=== PATIENT | female | born 1950 | race Caucasian/White ===

== ENCOUNTER 2019-08-14 13:35 | Outpatient (CLI) | payer MEDICARE, BC, SELFPAY ==
--- NOTE | 2019-08-14 13:55 | XRR_ITS ---
PROCEDURE INFORMATION: Exam: XR Left Ribs Exam date and time: 08/14/2019 2:12 PM Age: 69 years old Clinical indication: Other: Left rib pain; Additional info: Left sided rib pain TECHNIQUE: Imaging protocol: XR Left ribs. Views: 2 views. COMPARISON: CR Chest 2 views* [id number] 01/07/2017 11:45 AM FINDINGS: Bones/joints: Negative for acute bony abnormality Soft tissues: Normal. XR/XR ribs LT 2V* [id number] IMPRESSION: No acute findings.
== END 2019-08-14 13:36 | disposition home or self-care (01) ==
LOC: RAD 13:48
PROVIDERS: Family Provider Family Medicine; PCP Family Medicine; Visit Provider Family Medicine
DX: R07.81 Pleurodynia (principal)
CPT/HCPCS: 71100

== ENCOUNTER 2020-07-16 13:38 | Outpatient (CLI) | payer MEDICARE, OTHER, SELFPAY ==
--- NOTE | 2020-07-16 13:50 | XRR_ITS ---
PROCEDURE INFORMATION: Exam: XR Thoracic Spine, 3 Views Exam date and time: 07/16/2020 1:50 PM Age: 70 years old Clinical indication: Pain in thoracic spine; Other: Not specified; Patient HX: Mid back pain for 2-3 months. Worse in the last 2 days. electric pain up and down spine TECHNIQUE: Imaging protocol: XR of the thoracic spine, 3 views. COMPARISON: No relevant prior studies available. FINDINGS: Bones/joints: Osteopenia, degenerative change, and scoliosis. No acute bony injury or malalignment. Soft tissues: Unremarkable. XR/XR thoracic spine 2V [id number] IMPRESSION: Osteopenia, degenerative change, and scoliosis.
--- NOTE | 2020-07-16 13:50 | XRR_ITS ---
PROCEDURE INFORMATION: Exam: XR Lumbosacral Spine, 2 or 3 Views Exam date and time: 07/16/2020 1:50 PM Age: 70 years old Clinical indication: Low back pain; Patient HX: Mid back pain for 2-3 months. Worse in the last 2 days. electric pain up and down spine TECHNIQUE: Imaging protocol: XR of the lumbosacral spine, 2 or 3 views. COMPARISON: CT abdomen pelvis w con* [id number] 11/26/2017 11:14 AM FINDINGS: Bones/joints: Osteopenia and degenerative change. No acute bony injury or malalignment. Soft tissues: Multiple surgical clips and sutures. Gastrointestinal tract: Prominent stool. XR/XR lumbar spine 2-3V* [id number] IMPRESSION: Osteopenia and degenerative change.
== END 2020-07-16 13:39 | disposition home or self-care (01) ==
LOC: RAD 13:43
PROVIDERS: PCP Family Medicine; Visit Provider Family Medicine
DX: M54.89 Other dorsalgia (principal); M85.88 Other specified disorders of bone density and structure, other site
CPT/HCPCS: 72070; 72100

== ENCOUNTER → 2021-01-29 12:26 | Outpatient (BNVA) | payer MEDICARE, OTHER, SELFPAY | PROVIDERS: PCP Family Medicine; Visit Provider Specialist | DX: M79.7 Fibromyalgia (principal); G31.84 Mild cognitive impairment of uncertain or unknown etiology; G62.9 Polyneuropathy, unspecified; M21.371 Foot drop, right foot; F41.9 Anxiety disorder, unspecified | CPT/HCPCS: 96116; 99214; 99215 ==

== ENCOUNTER 2021-04-29 13:40 | Outpatient (RCR) | payer MEDICARE, OTHER, SELFPAY | END 2021-05-11 23:59 | disposition home or self-care (01) | LOC: SPT 13:40 | PROVIDERS: PCP Family Medicine; Referring Provider Family Medicine; Visit Provider Family Medicine | DX: R26.81 Unsteadiness on feet (principal); M19.90 Unspecified osteoarthritis, unspecified site; R53.1 Weakness | CPT/HCPCS: 97110; 97161 ==

== ENCOUNTER 2021-05-06 09:40 | Outpatient (CLI) | payer MEDICARE, OTHER, SELFPAY ==
--- NOTE | 2021-05-06 09:48 | MM_ITS ---
WS: [id number] Exam: [place] [id number] Date/Time of Exam: 05/06/2021 9:49 AM Reason For Exam: SCREENING VIEWS: MLO and CC views both breasts. Comparison made with prior exam of 05/02/2015, 08/19/2017. Findings: Questionable new 4 mm nodule seen in the anterior left breast on the MLO view only. No other changes in either breast.Scattered fibroglandular densities in both breasts. MM/[place] [id number] Impression: BI-RADS: 0-Incomplete: Need additional imaging evaluation FOLLOW-UP: Additional imaging required. Magnification compression spot images o f the left breast in the MLO and CC projections would be recommended in additio n to a 90 degree lateral view of the left breast. Regional ultrasound of the le ft breast may also be necessary for further workup.Need Additional Imaging This mammogram was also analyzed by the Computer Aided Detection System [employer].
== END 2021-05-06 09:41 | disposition home or self-care (01) ==
PROVIDERS: PCP Family Medicine; Visit Provider Family Medicine
DX: Z12.31 Encounter for screening mammogram for malignant neoplasm of breast (principal)
CPT/HCPCS: 77067

== ENCOUNTER → 2021-05-08 13:55 | Outpatient (BNVA) | payer MEDICARE, OTHER, SELFPAY | PROVIDERS: PCP Family Medicine; Referring Provider Family Medicine; Visit Provider Specialist | DX: G31.84 Mild cognitive impairment of uncertain or unknown etiology (principal); R68.89 Other general symptoms and signs | CPT/HCPCS: 95816 ==

== ENCOUNTER → 2021-05-19 14:30 | Outpatient (BNVA) | payer MEDICARE, OTHER, SELFPAY | PROVIDERS: PCP Family Medicine; Visit Provider Specialist | DX: M79.7 Fibromyalgia (principal); G30.9 Alzheimer's disease, unspecified; F02.80 Dementia in other diseases classified elsewhere, unspecified severity, without behavioral disturbance, psychotic disturbance, mood disturbance, and anxiety; F41.8 Other specified anxiety disorders; F45.9 Somatoform disorder, unspecified | CPT/HCPCS: 99214 ==

== ENCOUNTER 2021-07-09 14:04 | Outpatient (CLI) | payer MEDICARE, OTHER, SELFPAY ==
--- NOTE | 2021-07-09 15:00 | US_ITS ---
WS: [id number] LEFT DIGITAL MAMMOGRAPHY WITH CAD CLINICAL INFORMATION: ABNORMAL MAMMO COMPARISON: May 06, 2021 TECHNIQUE: 2 views of the left breast were obtained. FINDINGS: The left breast is composed of heterogeneous fibroglandular density tissue, which can limit the detec tion of small underlying mass lesions. Previously described 4 mm nodule anterior left breast is less distinct on today's examination. Ultrasound is pending. ULTRASOUND BREAST LEFT TECHNIQUE: Ultrasound left breast focused area of concern. CLINICAL INFORMATION: ABNORMAL MAMMO COMPARISON: None. FINDINGS: Ultrasound left breast at the 8 o'clock position. Tiny simple appearing cyst measuring approximately 2.4 x 2.6 x 4.3 mm. This has a benign appearance. No other suspicious findings. Recommend return to a nnual screening mammography. US/US breast LT limited* [id number] IMPRESSION: BI-RADS: 2-Benign FOLLOW UP: 1 Year Follow-up Recommend return to annual screening mammography.
== END 2021-07-09 14:05 | disposition home or self-care (01) ==
LOC: RADSHAW 14:11
PROVIDERS: PCP Family Medicine; Visit Provider Family Medicine
DX: R92.8 Other abnormal and inconclusive findings on diagnostic imaging of breast (principal)
CPT/HCPCS: 76642; 77065

== ENCOUNTER 2021-08-18 14:02 | Outpatient (CLI) | payer MEDICARE, SELFPAY ==
--- NOTE | 2021-08-18 14:17 | CT_ITS ---
WS: [id number] CT THORACIC SPINE TECHNIQUE: Noncontrast CT of the thoracic spine with coronal and sagittal reformatted images. CLINICAL INFORMATION: BACK PAIN, ACUTE AND CHRONIC COMPARISON: None. DLP: All CT scans at [facility] use at least one of these dose optimization techniques: automated e xposure control; mA and/or kV adjustment per patient size (includes targeted exams where dose is matc hed to clinical indication); or iterative reconstruction. FINDINGS: Mild thoracic curve convex RIGHT. Mild thoracic kyphosis. Mild spondylitic changes thoracic spine. No acute appearing compression fractures. Disc space heights and vertebral body heights relatively well -preserved. Mild disc space narrowing with vacuum disc phenomenon at T9-T10 and T10-T11. No significa nt central canal stenosis. Mild to moderate facet arthropathy lower thoracic spine. Tiny shallow LEFT pericentral protrusion T11-T12. Spinal canal and foramen are patent. Mild disc bulg ing partially evaluated in the upper lumbar spine at L1-L2. Partially evaluated bilateral renal cysts. Adrenal glands are normal. Splenic granulomas. Partially v isualized hepatic cyst. CT/CT thoracic spin wo con* [id number] IMPRESSION: 1. Mild thoracic curve. Mild thoracic kyphosis. 2. No acute appearing compression fractures. 3. No high-grade central canal stenosis. 4. Mild spondylitic changes with mild disc space narrowing T9-T10 and T10-T11 with vacuum disc phenomenon. 5. Disc space heights and vertebral body heights are otherwise relatively well -preserved. 6. Tiny LEFT pericentral protrusion T11-T12 without significant spinal canal o r foraminal stenosis. 7. Moderate facet arthropathy lower thoracic spine.
--- NOTE | 2021-08-18 14:18 | CT_ITS ---
WS: [id number] CT CERVICAL SPINE TECHNIQUE: Noncontrast CT of the cervical spine with coronal and sagittal reformatted images. CLINICAL INFORMATION: BACK PAIN, ACUTE AND CHRONIC COMPARISON: MRI 2018 DLP: ? All CT scans at [facility] use at least one of these dose optimization techniques: automated e xposure control; mA and/or kV adjustment per patient size (includes targeted exams where dose is matc hed to clinical indication); or iterative reconstruction. FINDINGS: Straightening of the normal cervical lordosis. Mild spondylitic changes. Normal C1-C2 articulation. S light anterolisthesis C3 on C4 and C4 on C5. Disc space narrowing worse at C5-C6 and C6-C7. No high-g rade central canal stenosis. Lung apices are well aerated. Normal paravertebral soft tissues. C2-C3: Tiny shallow central protrusion. Mild facet arthropathy. Spinal canal and foramen are patent. C3-C4: Disc osteophytic ridging. Mild facet arthropathy. Mild RIGHT and no significant LEFT foraminal narrowing. C4-C5: Slight anterolisthesis C4 on C5. Disc osteophyte complex with endplate ridging. Slight contact of the cervical cord. Spinal canal is patent. Moderate facet arthropathy. Foramen are patent. C5-C6: RIGHT eccentric disc osteophyte complex. Moderate to severe RIGHT foraminal narrowing. LEFT fo ramen is patent. Spinal canal is patent. C6-C7: Disc osteophyte complex with endplate ridging. Mild central canal stenosis. Moderate to severe RIGHT and mild LEFT bony foraminal narrowing. C7-T1: No significant disc bulging. Spinal canal is patent. Mild RIGHT and no significant LEFT forami nal narrowing. Mastoid air cells are well aerated. Visualized posterior nasopharynx: Normal. Prevertebral soft tissues: Normal. CT/CT cervical spin wo con* [id number] IMPRESSION: 1. Straightening of the normal cervical lordosis with moderate spondylitic matty nges. Slight anterolisthesis C4 on C5. 2. Disc space narrowing worse at C5-C6 and C6-C7 appears progressed compared t o 2018. 3. Moderate to severe RIGHT C5-C6 and RIGHT C6-C7 bony foraminal narrowing. Th is appears unchanged since 2018. 4. Disc osteophyte complex with mild central canal stenosis C6-C7. This appear s slightly progressed compared to 2018. 5. Mild RIGHT C7-T1 foraminal narrowing unchanged.
== END 2021-08-18 14:03 | disposition home or self-care (01) ==
LOC: RAD 14:08
PROVIDERS: PCP Family Medicine; Visit Provider Family Medicine
DX: M25.78 Osteophyte, vertebrae (principal); M48.02 Spinal stenosis, cervical region; M40.294 Other kyphosis, thoracic region; M51.24 Other intervertebral disc displacement, thoracic region; M47.894 Other spondylosis, thoracic region
CPT/HCPCS: 72125; 72128

== ENCOUNTER → 2021-12-30 15:00 | Outpatient (BNVA) | payer MEDICARE, SELFPAY | PROVIDERS: PCP Family Medicine; Visit Provider Specialist | DX: M79.7 Fibromyalgia (principal); G31.84 Mild cognitive impairment of uncertain or unknown etiology; R68.89 Other general symptoms and signs; F41.9 Anxiety disorder, unspecified | CPT/HCPCS: 99214 ==

== ENCOUNTER → 2022-01-07 14:42 | Outpatient (BNVA) | payer MEDICARE, SELFPAY | PROVIDERS: PCP Family Medicine; Visit Provider Family Medicine | DX: N39.0 Urinary tract infection, site not specified (principal); A60.00 Herpesviral infection of urogenital system, unspecified; L28.0 Lichen simplex chronicus | CPT/HCPCS: 81000; 87077; 87086; 87184 ==

== ENCOUNTER → 2022-07-28 15:16 | Outpatient (BNVA) | payer MEDICARE, SELFPAY | PROVIDERS: PCP Family Medicine; Visit Provider Clinical Nurse Specialist Adult Health | DX: R19.7 Diarrhea, unspecified (principal); E03.9 Hypothyroidism, unspecified; F32.9 Major depressive disorder, single episode, unspecified | CPT/HCPCS: 80053; 81000; 83630; 84443; 85025; 85651; 86140; 87493; 87506 ==

== ENCOUNTER → 2022-11-11 12:11 | Outpatient (BNVA) | payer MEDICARE, OTHER, SELFPAY | PROVIDERS: PCP Family Medicine; Visit Provider Family Medicine | DX: E03.9 Hypothyroidism, unspecified (principal); F41.9 Anxiety disorder, unspecified; G30.9 Alzheimer's disease, unspecified; F02.80 Dementia in other diseases classified elsewhere, unspecified severity, without behavioral disturbance, psychotic disturbance, mood disturbance, and anxiety | CPT/HCPCS: 80053; 80061; 84443; 85025 ==

== ENCOUNTER 2023-06-13 13:01 | Emergency (ER) | payer MEDICARE, OTHER, SELFPAY ==
[2023-06-13 13:11] VITALS: BP 113/74; PULSE 96; RESP 16; TEMP 36.6; O2SAT 97; BMI 21.5
--- NOTE | 2023-06-13 13:19 | XRR_ITS ---
PROCEDURE INFORMATION: Exam: XR Left Wrist Exam date and time: 06/13/2023 1:27 PM Age: 73 years old Clinical indication: Pain; Wrist; Left; Additional info: Pain, injury 2 wks ago TECHNIQUE: Imaging protocol: Radiologic exam of the left wrist. Views: 3 or more views. COMPARISON: No relevant prior studies available. FINDINGS: Bones/joints: Bones are diffusely osteopenic. Alignment is normal. There is marked joint space narrowing and subchondral sclerosis with small marginal osteophytes at the triscaphe joint. There is mild osteoarthritis at the 1st carpometacarpal joint. No acute fracture. Soft tissues: Visible soft tissues are unremarkable. XR/XR wrist LT min 3V* [id number] IMPRESSION: 1. No acute fracture. 2. Severe triscaphe osteoarthritis. 3. Mild 1st carpometacarpal osteoarthritis. 4. Osteopenia.
--- NOTE | 2023-06-13 13:31 | ED_ITS ---
HPI - Extremity Problem General: Chief complaint: Extremity Injury, Upper Stated complaint: hurt left wrist Time Seen by Provider: 06/13/23 13:06 Source: patient Mode of arrival: ambulatory Limitations: no limitations History of Present Illness: Patient presents emergency department today for evaluation treatment of left posterior wrist pain. Patient noted onset a couple weeks ago without any known trauma or injury. Patient went to the urgent care initially and they were unable to find anything wrong with the wrist however, she is continued to have pain, she did contact them and they indicated she would need to come out to the emergency department if she needed an x-ray. Patient states that certain range of motion of the wrist causes sharp, shooting pains down into her hand. She has developed a small bump on the posterior mid/lateral wrist region which is tender and sore and the originating spot of her shooting pains. Patient is right-handed. She denies previous injury to the left wrist. Patient admits she has been looking into it and has been told it is a ganglion cyst but, patient states she is concerned of cancer. Patient had basal cell cancer on her nose removed in the past. Review of Systems General: Reports: 10 or more systems reviewed and unremarkable except in HPI and below PFSH ED PFSH: Medical History Diarrhea Hypothyroid Neuropathy Depression Surgical abdomen Surgical History History of hysterectomy Family History Other Cancer Dementia Social History Smoking and tobacco/nicotine status: never used tobacco/nicotine Alcohol intake: never Physical Exam Const: COMMON NORMALS: no acute distress, patient oriented x3 and alert HENMT: COMMON NORMALS: normocephalic, atraumatic and hearing grossly normal bilaterally HEAD & SCALP: normocephalic and atraumatic Eye: COMMON NORMALS: Equal, round and reactive pupils present, EOMs intact bilaterally and conjunctivae normal CONJUNCTIVA: Yes conjunctivae normal PUPIL: Yes Equal, round and reactive pupils present Neck/C-Spine: COMMON NORMALS: full ROM and no JVD Lymph: LYMPHATIC: no lymphadenopathy noted Resp: COMMON NORMALS: normal respiratory effort, No retractions and No use of accessory muscles Cardio: COMMON NORMALS: no JVD and regular rate RATE: regular rate Extremity: NARRATIVE EXTREMITY EXAM: Patient has flexion extension capabilities still preserved at the left wrist joint but, during her examination-especially at supination, patient had a sudden jolt of pain causing her to jump. Patient still has preserved mobility of the fingers of the left hand. Neuro: COMMON NORMALS: patient oriented x3 SENSORIUM/ORIENTATION: Yes alert OTHER: Neurovascular intact to the distal left upper extremity Psych: COMMON NORMALS: mental status grossly normal, Normal thought process present, cooperative and normal affect THOUGHT PROCESS: Normal thought process present Skin: COMMON NORMALS: no rashes or lesions noted and turgor normal NARRATIVE SKIN EXAM: Patient has no erythema, open wounds, or bruising noted to the left wrist region. Patient does have a small soft, mobile bump approximately 1 cm in diameter located to the posterior mid/lateral wrist region which is tender to touch. GENERAL SKIN EXAM: no rashes or lesions noted and turgor normal Course Vital Signs: Vital signs: Vital Signs Temperature 97.8 F 06/13/23 13:11 Pulse Rate 96 06/13/23 13:11 Respiratory Rate 16 06/13/23 13:11 Blood Pressure 113/74 06/13/23 13:11 Pulse Oximetry 97 06/13/23 13:11 Oxygen Delivery Me thod Room Air 06/13/23 13:11 MDM - Extremity (Nontraumatic) Medical Decision Making Initial examination is suspicious for a ganglion cyst however, patient is concerned for cancer. X-ray shows no signs of any bone deterioration though she does have signs of chronic osteoarthritic changes at multiple joints within the hand. Discussed with patient no current concerns for osteolytic changes suspicious for cancer. Patient is referred to orthopedics for further discussion of treatment for a ganglion cyst. Explained to her that aspiration and draining may lead to recurrence of the cyst and, would recommend letting the hand specialist do the aspiration if they think it is necessary. Or, they can have a decision made about a more definitive care with potential surgery. However, we do recommend immobilization of the joint as continued movement and mobility can cause friction and inflammation of the cyst leading to continued growth in size. Informational handout regarding ganglion cyst provided to the patient for her reference at home. Patient verbalized understanding and agreement to treatment plan. Differential Diagnosis Unlikely herpes zoster, gout, cellulitis, superficial thrombophlebitis or deep venous thrombosis of upper extremity Lab Data Radiology Impressions Wrist X-Ray 06/13/23 13:19 IMPRESSION: 1. No acute fracture. 2. Severe triscaphe osteoarthritis. 3. Mild 1st carpometacarpal osteoarthritis. 4. Osteopenia. All radiology interpretation(s) finalized by discharge Discharge Plan Discharge Patient Disposition: Home Clinical Impression: Ganglion cyst of dorsum of left wrist Condition: Stable Prescriptions: No Action gabapentin 300 mg capsule 300 mg PO DAILY diclofenac sodium [Voltaren Arthritis Pain] 1 % gel 4 g topical QID Qty: 100 0RF Rx Instructions: apply to single knee, ankle, foot; for foot includes sole/toes/top of foot cyclobenzaprine 10 mg tablet 10 mg PO BID PRN (Reason: muscle spasm) Qty: 60 5RF citalopram [Celexa] 20 mg tablet 20 mg PO DAILY Qty: 30 11RF levothyroxine [Synthroid] 75 mcg tablet See Rx Instructions .ROUTE .COMPLEX Qty: 90 3RF Dose Instruction: TAKE 1 TABLET ONCE DAILY Rx Instructions: TAKE 1 TABLET ONCE DAILY hydrocodone-acetaminophen 5-325 mg tablet 1 tab PO BID PRN (Reason: pain) 30 Days Qty: 60 0RF trazodone 150 mg tablet 150 mg PO DAILY Qty: 90 3RF Discharge Orders: Discharge ED (Routine); Ordered 06/13/23 Ordered By: Sheryl Crowell Referrals: Cam Cartwright MD [Primary Care Provider] - Discharge Diet: Usual diet Discharge Activity: Limit activity as instructed Patient Instructions: Ganglion Cyst (ED) Activity Restrictions/Additional Instructions: X-ray today revealed no acute concerns. You do have some significant arthritis in various joints within your hand. We are going to put you into a wrist brace to help decrease mobility of the wrist as continued movement can cause irritation and further inflammation of the cyst causing it to become larger. I have also requested a follow-up appointment with our hands orthopedic group for further evaluation to discuss best treatment course for more definitive management of removing this cyst. I provided you informational handout regarding ganglion cyst for you to look over at home. Coding Level of Care Code ED [employer] Super[employer] for Caren Collier
--- NOTE | 2023-06-14 08:15 | DCPLANNER ---
Message was sent to ortho on 06/14/23 at 0817. Clinic to contact patient.
== END 2023-06-13 14:33 | disposition home or self-care (01) ==
PROVIDERS: Emergency Provider Physician Assistant; PCP Family Medicine
DX: M67.432 Ganglion, left wrist (principal); M18.9 Osteoarthritis of first carpometacarpal joint, unspecified
CPT/HCPCS: 73110; 99283

== ENCOUNTER 2023-07-07 10:14 | Outpatient (CLI) | payer MEDICARE, OTHER, SELFPAY ==
--- NOTE | 2023-07-07 10:20 | CT_ITS ---
WS: [id number] CT NECK TECHNIQUE: Contrast-enhanced CT of the neck with coronal and sagittal reformatted images. CLINICAL INFORMATION: OTALGIA/CERVICALGIA COMPARISON: None. DLP: 158.[address] scans at [facility] use at least one of these dose optimization techniques: automated e xposure control; mA and/or kV adjustment per patient size (includes targeted exams where dose is matc hed to clinical indication); or iterative reconstruction. FINDINGS: No suspicious abnormalities deep to the palpable marker RIGHT neck. Parotid glands are normal. Normal submandibular glands. Mastoid air cells are well aerated. Polyploid mucosal thickening involving the RIGHT anterior ethmoid air cells. Normal posterior nasopharynx. Normal parapharyngeal fat. No evidence of supraglottic or glottic mass. Normal [place] tonsils. No cervical lymphadenopathy. Re tropharyngeal course to the common carotid and internal carotid arteries bilaterally. Lung apices are well aerated. Straightening normal cervical lordosis. Mild cervical curve. IMPRESSION: 1. No suspicious abnormalities deep to the palpable marker. Prominent external jugular vein near thi s area may correspond to the palpable abnormality. 2. Normal salivary glands. 3. No evidence of supraglottic or glottic mass. 4. Retropharyngeal course of the common carotid and internal carotid arteries bilaterally. 5. Polypoid opacification RIGHT frontal ethmoid air cells. This extends into the RIGHT maxillary ost ium.
[2023-07-07 11:14] LABS: Blood Urea Nitrogen 17 mg/dL (8-23)
[2023-07-07] MEDS: iohexol 350 mg/mL 500 mL Btl (per mL) IV (11:15)
== END 2023-07-07 10:15 | disposition home or self-care (01) ==
LOC: RAD 10:14
PROVIDERS: PCP Family Medicine; Visit Provider Specialist
DX: H92.09 Otalgia, unspecified ear (principal); M54.2 Cervicalgia
CPT/HCPCS: 70491; 82565; 84520; Q9967

== ENCOUNTER → 2023-07-13 13:20 | Outpatient (BNVA) | payer MEDICARE, OTHER, SELFPAY | PROVIDERS: PCP Family Medicine; Referring Provider Physician Assistant; Visit Provider Physician Assistant | DX: M67.432 Ganglion, left wrist (principal) | CPT/HCPCS: 99203 ==

== ENCOUNTER → 2024-02-09 13:29 | Outpatient (BNVA) | payer MEDICARE, OTHER, SELFPAY | PROVIDERS: PCP Family Medicine; Visit Provider Family Medicine | DX: G62.9 Polyneuropathy, unspecified (principal); R53.83 Other fatigue; F33.1 Major depressive disorder, recurrent, moderate; E03.9 Hypothyroidism, unspecified | CPT/HCPCS: 80053; 82306; 82607; 83880; 84443; 86140 ==

== ENCOUNTER → 2024-04-14 14:58 | Outpatient (BNVA) | payer MEDICARE, OTHER, SELFPAY | PROVIDERS: PCP Family Medicine; Referring Provider Family Medicine; Visit Provider Specialist | DX: G62.9 Polyneuropathy, unspecified (principal); R26.9 Unspecified abnormalities of gait and mobility; M79.7 Fibromyalgia; G31.84 Mild cognitive impairment of uncertain or unknown etiology; R68.89 Other general symptoms and signs; F41.9 Anxiety disorder, unspecified; N18.9 Chronic kidney disease, unspecified | CPT/HCPCS: 99214; 99215 ==

== ENCOUNTER 2024-05-12 14:36 | Outpatient (CLI) | payer MEDICARE, OTHER, SELFPAY ==
--- NOTE | 2024-05-12 15:15 | MR_ITS ---
WS: [id number] MRI HEAD WITH CONTRAST TECHNIQUE: Sagittal T1, T2 axial, T2 axial FLAIR, axial susceptibility weighted imaging, axial diffus ion weighted images, and coronal T2 images were obtained. Pre and post-T1 axial and post T1 coronal i mages. ADC and FSPGR images. CLINICAL INFORMATION: G62.9 - Polyneuropathy, unspecified COMPARISON: MRI 2018 FINDINGS: Some images degraded by motion. No evidence of restricted diffusion to suggest acute ischemia. Ventricular system and basal cisterns are patent. Mild patchy supratentorial white matter changes similar 2018 most likely due to small ves keshav changes in a patient this age. Mild parenchymal volume loss. No abnormal enhancing lesions. A few lesions are in a pericallosal distribution similar to 2018. Normal posterior fossa. Normal vascular flow voids at the skull base. No extra-axial fluid collection s. No evidence of mass or mass effect. Mild mucosal thickening the paranasal sinuses with opacificati on of the RIGHT frontoethmoidal recess and RIGHT ethmoid air cells. Mastoid air cells are well aerate d. No hemosiderin on the susceptibly weighted images. No abnormal gadolinium enhancement. Normal dural venous sinuses. MR/MR head wo/w con [id number] IMPRESSION: 1. No evidence of restricted diffusion to suggest acute ischemia. 2. Mild patchy supratentorial white matter changes some in pericallosal distri bution similar compared to 2018. Recommend correlation with history of demyelin ating disease. Small vessel changes are more likely in a patient this age. 3. Mild parenchymal volume loss. 4. No abnormal gadolinium enhancement. 5. Partial opacification RIGHT frontoethmoidal recess and RIGHT ethmoid air ce lls.
--- NOTE | 2024-05-12 16:00 | MR_ITS ---
WS: [id number] MR CERVICAL SPINE WO/W COMPARISON: 2018 HISTORY: G62.9 - Polyneuropathy, unspecified TECHNIQUE: Sagittal T1, T2 and T2 inversion recovery; axial T2, T2 gradient and fiesta. Post gadolini um imaging with fat saturation technique. FINDINGS: Straightening normal cervical lordosis. Cord signal is normal. No high-grade central canal narrowing. Slight retrolisthesis C5 on C6 and C6 on C7. No visualized demyelinating lesions within th e cervical cord. No enhancing lesions. No cord atrophy. C2-3: Mild facet arthropathy. C3-4: Mild disc osteophytic ridging. Spinal canal and foramen are patent. Mild facet arthropathy. C4-5: Disc osteophyte complex with endplate ridging. Mild facet arthropathy. Mild RIGHT foraminal toshia rowing. C5-6: Disc osteophyte complex with endplate ridging. Moderate RIGHT and mild LEFT bony foraminal narr owing. Moderate facet arthropathy. Spinal canal is patent. C6-7: Disc osteophyte complex with endplate ridging. Moderate bilateral bony foraminal narrowing RIGH T greater than LEFT. Uncovertebral joint hypertrophy. Mild facet arthropathy. C7-T1: Spinal canal and foramen are patent. MR/MR cervical spine wo/w [id number] IMPRESSION: 1. No demyelinating lesions within the cervical cord. Normal cord signal. No e nhancing lesions. 2. Mild spondylitic changes described above. 3. Moderate RIGHT C5-C6 and bilateral C6-7 bony foraminal narrowing.
[2024-05-12] MEDS: gadobenate dimeglumine 20 mL vial 15 ML IV (16:11)
== END 2024-05-12 14:37 | disposition home or self-care (01) ==
LOC: RAD 14:37
PROVIDERS: PCP Family Medicine; Visit Provider Specialist
DX: M99.61 Osseous and subluxation stenosis of intervertebral foramina of cervical region (principal); M25.78 Osteophyte, vertebrae; M47.892 Other spondylosis, cervical region; R90.82 White matter disease, unspecified; J34.89 Other specified disorders of nose and nasal sinuses; R26.9 Unspecified abnormalities of gait and mobility; G62.9 Polyneuropathy, unspecified
CPT/HCPCS: 70553; 72156

== ENCOUNTER 2024-06-12 13:45 | Outpatient (CLI) | payer MEDICARE, OTHER, SELFPAY ==
--- NOTE | 2024-06-12 13:52 | MR_ITS ---
WS: [id number] MRI NECK WITH AND WITHOUT CONTRAST. COMPARISON: None Multiplanar, multisequence imaging is performed with and without contrast. MultiHance 15 mL IV. Symmetric appearance of the soft tissues of the airway. The LEFT jugular vein is significantly enlarg ed as compared to the RIGHT. No adenopathy. No laryngeal mass is identified. There is no enhancing ma ss. Reversal of the normal cervical lordosis. MR/MR orbit face neck wo/w* [id number] IMPRESSION: 1. Enlarged LEFT jugular vein, asymmetric to the RIGHT. 2. No cervical chain adenopathy. 3. No neck mass identified.
[2024-06-12] MEDS: gadobenate dimeglumine 20 mL vial 15 ML IV (14:38)
== END 2024-06-12 13:51 | disposition home or self-care (01) ==
PROVIDERS: PCP Family Medicine; Visit Provider Specialist
DX: I82.C12 Acute embolism and thrombosis of left internal jugular vein (principal); M54.2 Cervicalgia
CPT/HCPCS: 70543

== ENCOUNTER → 2024-06-13 12:04 | Outpatient (BNVA) | payer MEDICARE, OTHER, SELFPAY | PROVIDERS: PCP Family Medicine; Visit Provider Family Medicine | DX: E11.22 Type 2 diabetes mellitus with diabetic chronic kidney disease (principal); N18.9 Chronic kidney disease, unspecified; F33.1 Major depressive disorder, recurrent, moderate; E03.9 Hypothyroidism, unspecified | CPT/HCPCS: 80048; 81000; 84443; 87086 ==

== ENCOUNTER → 2025-03-08 13:46 | Outpatient (BNVA) | payer MEDICARE, OTHER, SELFPAY | PROVIDERS: PCP Family Medicine; Visit Provider Family Medicine | DX: E03.9 Hypothyroidism, unspecified (principal); F33.1 Major depressive disorder, recurrent, moderate; F41.9 Anxiety disorder, unspecified; G62.9 Polyneuropathy, unspecified; R26.9 Unspecified abnormalities of gait and mobility | CPT/HCPCS: 80053; 84443; 85025 ==

== ENCOUNTER 2025-06-21 14:19 | Emergency (ER) | payer MEDICARE, OTHER, SELFPAY ==
[2025-06-21 14:38] VITALS: BP 101/68; PULSE 96; TEMP 36.3; O2SAT 96
--- NOTE | 2025-06-21 15:08 | XR_ITS ---
WS: [id number] XR ribs RT mn 3V w CXR1V [id number] REASON FOR EXAM: fall FINDINGS: No rib fracture identified. No pneumothorax or subcutaneous emphysema. No other acute chest abnormality. XR/XR ribs RT mn 3V w CXR1V [id number] IMPRESSION: No acute abnormality.
[2025-06-21 16:00] VITALS: BP 104/87; PULSE 92; O2SAT 98
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
--- NOTE | 2025-06-21 16:08 | PC.NURSE ---
pt was provided with water by ED provider
[2025-06-21 16:14] LABS: Glucose Urine UA Negative (Normal); Nitrate Urine Negative (Negative); Specific Gravity, Urine 1.011 (1.005-1.030)
[2025-06-21 16:19] LABS: Add Urine Microscopic? YES; Universal Test for UA Present (0)
[2025-06-21 16:32] LABS: UA Slide Review UA Slide Review Perf
[2025-06-21 17:22] VITALS: BP 146/86; PULSE 74; O2SAT 99
== END 2025-06-21 17:25 | disposition home or self-care (01) ==
PROVIDERS: Emergency Provider Physician Assistant; PCP Family Medicine
DX: I95.1 Orthostatic hypotension (principal); R82.81 Pyuria; S20.20XA Contusion of thorax, unspecified, initial encounter; W19.XXXA Unspecified fall, initial encounter
CPT/HCPCS: 71101; 81001; 87077; 87086; 87186; 96372; 99284; J0696; J9999